=== PATIENT | female | born 1990 | race American Indian/Alaskan Native ===

== ENCOUNTER 2017-12-04 15:21 | Emergency (ER) | payer OTHER ==
[2017-12-04 15:40] VITALS: BP 176/101
[2017-12-04 16:04] LABS: Basophils % (Auto) 0.2 % (0.0-1.8); Eosinophils # (Auto) 0.1 K/mm3 (0.0-0.4); Eosinophils % (Auto) 1.4 % (0.0-4.3); Hematocrit 38.3 % (30.3-42.9); Hemoglobin 12.7 gm/dl (10.1-14.3); Lymphocytes % (Auto) 32.6 % (13.4-35.0); Mean Corpuscular HGB Conc 33 % (30-34); Mean Corpuscular Volume 75 fl (79-97); Monocytes # (Auto) 0.9 K/mm3 (0.0-0.8); Monocytes % (Auto) 10.5 % (0.0-7.3); Platelet Count 200 K/mm3 (140-440); Red Blood Count 5.12 M/mm3 (3.65-5.03)
[2017-12-04 16:06] LABS: Mean Corpuscular Hemoglobin 25 pg (28-32)
[2017-12-04 16:22] LABS: BUN/Creatinine Ratio 30; Blood Urea Nitrogen 15 mg/dL (7-17); Hemolysis Index 0
--- NOTE | 2017-12-04 16:30 | XRay Report ---
FINAL REPORT EXAM: XR CHEST ROUTINE 2V HISTORY: Shortness of breath TECHNIQUE: Two views of the chest Comparison: None FINDINGS: Normal heart size. Clear well expanded lungs without focal infiltrate or consolidation. Imaged axial skeleton demonstrates mild degenerative disease. No pleural effusion. Left lung apex is slightly more lucent than the right. IMPRESSION: No definite acute cardiopulmonary disease. Exam slightly limited by patient body habitus.
--- NOTE | 2017-12-04 17:47 | Emergency Department Report ---
Minor Respiratory - HPI Chief Complaint: Dyspnea/Respdistress Stated Complaint: SOB CHEST PRESSURE Time Seen by Provider: 12/04/17 17:36 Duration: 3 Days Pain Location: Throat, Chest Severity: moderate Minor Respiratory: Yes Sore Throat, Yes Able to Tolerate Fluids, Yes Cough, Yes Sick Contacts, Yes Chest Pain, Yes Shortness of Breath, No Rhinorrhea, No Ear Pain, No Hemoptysis, No Fever Other History: Is a 27-year-old female presenting with tightness of the chest shortness of breath. Patient states that she saw doctor yesterday with her children children were diagnosed with strep, she tested negative. Patient states she was diagnosed with allergies and was told to take allergy medicines. Patient stated states that she was at work today she started having some increased chest tightness or shortness of breath. She does have a history of asthma and does not have an inhaler and thinks that some of the shortness of breath most likely is coming from this. Patient states that she's been sitting here for the last 2 hours she is feels slight improvement but still has some chest discomfort. Patient denies any current fevers chills nausea vomiting abdominal pain at this time. ED Review of Systems ROS: Stated complaint: SOB CHEST PRESSURE Other details as noted in HPI Comment: All other systems reviewed and negative ED Past Medical Hx - Past Medical History Previous Medical History?: Yes Hx Hypertension: Yes Hx Arthritis: Yes (left ankle) Hx Asthma: Yes Additional medical history: Sinus allergies, Vaginal delivery x 2 - Surgical History Past Surgical History?: No - Social History Smoking Status: Never Smoker Substance Use Type: Alcohol, Prescribed, Other - Medications Home Medications: Home Medications Medication Instructions Recorded Confirmed Last Taken Type ALBUTEROL Inhaler [ProAir HFA 2 puff IH QID PRN #1 inhalation 12/04/17 Unknown Rx Inhaler] HYDROcodone/APAP 5-325 [[place] 1 each PO Q4HR PRN #12 tablet 12/04/17 Unknown Rx 5/325] predniSONE [Deltasone] 20 mg PO QDAY #5 tab 12/04/17 Unknown Rx Minor Respiratory Exam - Exam General: Vital signs noted. No distress. Alert and acting appropriately. HEENT: Yes Moist Mucous Membranes, No Pharyngeal Erythema, No Pharyngeal Exudates, No Rhinorrhea, No Conjuctival Injection, No Frontal Tenderness, No Maxillary Tenderness Ear: Neither TM Bulge, Neither TM Erythema, Neither EAC Pain, Neither EAC Discharge Neck: Yes Supple, No Adenopathy Lungs: Yes Good Air Exchange, No Wheezes, No [place], No Stridor, No Cough, No Labored Respirations, No Retractions, No Use of Accessory Muscles, No Other Abnormal Lung Sounds Heart: Yes Regular, No Murmur Abdomen: Yes Normal Bowel Sounds, No Tenderness, No Peritoneal Signs Skin: No Rash, No Edema Neurologic: Alert and oriented, no deficits. Musculoskeletal: Unremarkable. ED Course Vital Signs 12/04/17 15:36 Temperature 98.6 F Pulse Rate 83 Respiratory 22 Rate Blood Pressure 176/101 O2 Sat by Pulse 100 Oximetry ED Medical Decision Making - Lab Data Result diagrams: 12/04/17 15:47 12/04/17 15:47 Lab Results 12/04/17 12/04/17 Range/Units 15:47 15:47 WBC 9.1 (4.5-11.0) K/mm3 RBC 5.12 H (3.65-5.03) M/mm3 Hgb 12.7 (10.1-14.3) gm/dl Hct 38.3 (30.3-42.9) % MCV 75 L (79-97) fl MCH 25 L (28-32) pg MCHC 33 (30-34) % RDW 15.0 (13.2-15.2) % Plt Count 200 (140-440) K/mm3 Lymph % (Auto) 32.6 (13.4-35.0) % [place] % (Auto) 10.5 H (0.0-7.3) % Eos % (Auto) 1.4 (0.0-4.3) % Baso % (Auto) 0.2 (0.0-1.8) % Lymph # 3.0 (1.2-5.4) K/mm3 [place] # 0.9 H (0.0-0.8) K/mm3 Eos # 0.1 (0.0-0.4) K/mm3 Baso # 0.0 (0.0-0.1) K/mm3 Seg Neutrophils % 55.3 (40.0-70.0) % Seg Neutrophils # 5.0 (1.8-7.7) K/mm3 Sodium 138 (137-145) mmol/L Potassium 3.9 (3.6-5.0) mmol/L Chloride 99.5 (98-107) mmol/L Carbon Dioxide 25 (22-30) mmol/L Anion Gap 17 mmol/L BUN 15 (7-17) mg/dL Creatinine 0.5 L (0.7-1.2) mg/dL Estimated GFR > 60 ml/min BUN/Creatinine Ratio 30 % Glucose 68 (65-100) mg/dL Calcium 9.0 (8.4-10.2) mg/dL Troponin T < 0.010 (0.00-0.029) ng/mL - EKG Data -: EKG Interpreted by Me - EKG Data Interpretation: other (EKG shows sinus rhythm rate of 83, axis normal intervals no ST segment elevation or depression as interpreted at 1534 is normal EKG) - Medical Decision Making 27 Medical female presenting with shortness of breath and chest pressure. Patient' s cardiac enzymes normal chest x-ray and EKG are within normal limits. Patient' s blood pressure slightly elevated however does have a history of high blood pressure last medication dose was last night and she is to take her medications today. Patient most likely has the beginnings of a upper respiratory infection. Patient will be given albuterol inhaler and prednisone Dosepak and [place] for pain and cough will be discharged home. She Critical care attestation.: If time is entered above; I have spent that time in minutes in the direct care of this critically ill patient, excluding procedure time. ED Disposition Clinical Impression: Upper respiratory infection Qualifiers: URI type: unspecified URI Qualified Code(s): J06.9 - Acute upper respiratory infection, unspecified Disposition: TO HOME OR SELFCARE Is pt being admited?: No Does the pt Need Aspirin: No Condition: Stable Instructions: Upper Respiratory Infection (ED) Prescriptions: ALBUTEROL Inhaler [ProAir HFA Inhaler] 2 puff IH QID PRN #1 inhalation PRN Reason: Shortness Of Breath Referrals: PRIMARY CARE,MD [Primary Care Provider] - 3-5 Days
== END 2017-12-04 17:58 | disposition home or self-care (01) ==
LOC: ED 15:21
DX: J06.9 Acute upper respiratory infection, unspecified (principal); J45.909 Unspecified asthma, uncomplicated; I10 Essential (primary) hypertension; M19.072 Primary osteoarthritis, left ankle and foot
CPT/HCPCS: 36415; 71046; 80048; 84484; 85025; 93005; 93010; 99284